=== PATIENT | female | born 1990 | race African-American/Black ===

== ENCOUNTER 2020-04-24 13:57 | Inpatient (IN) | payer OTHER ==
[2020-04-24] MEDS ORDERED: Nalbuphine 10 MG/1 ML Vial IVPUSH PRN (14:20)
[2020-04-24] MEDS ORDERED: Lidocaine 1% 50 ML MDV INJECT PRN (14:20)
[2020-04-24] MEDS ORDERED: Sodium Chloride 0.9% 10 ML Syringe FLUSH PRN (14:20)
[2020-04-24] MEDS ORDERED: Oxytocin/Lactated Ringers 10 UNIT/1,000 ML BAG IV SCH (14:30)
[2020-04-24] MEDS ORDERED: fentaNYL 100 MCG/2 ML SDV ONE (14:49)
[2020-04-24] MEDS: Lactated Ringers 1,000 ML IV SCH ×3 (15:15→16:56)
[2020-04-24] MEDS ORDERED: Bupivacaine/fentaNYL/NS 100 ML Bag EPIDUR PRN (15:23)
[2020-04-24] MEDS ORDERED: ePHEDrine 50 MG/ML SDV IVPUSH PRN (15:23)
[2020-04-24] MEDS ORDERED: fentaNYL 100 MCG/2 ML SDV EPIDUR PRN (15:23)
[2020-04-24] MEDS ORDERED: diphenhydrAMINE 50 MG/ML SDV IVPUSH PRN (15:23)
--- NOTE | 2020-04-24 15:23 | PCM.PREANE ---
Preanesthetic Assessment - Procedure Proposed Procedure: Continuous labor epidural - Anesthesia/Transfusion/Family Hx Anesthesia History: Prior Anesthesia Without Reaction - Review of Systems General: No Symptoms Pulmonary: No Symptoms Cardiovascular: No Symptoms Gastrointestinal: No Symptoms Neurological: No Symptoms Other: Reports: None - Physical Assessment Vital Signs: Last Vital Signs Temp Pulse 90 04/24/20 14:14 Resp BP Pulse Ox 97 04/24/20 14:14 Height: 1.52 m Weight: 115.212 kg ASA Class: 3 (morbid obesity) Mental Status: Alert & Oriented x3 Airway Class: Mallampati = 4 (difficult airway) Dentition: Reports: Normal Dentition Thyro-Mental Finger Breadths: 3 Mouth Opening Finger Breadths: 3 ROM/Head Extension: Full Lungs: Clear to Auscultation, Normal Respiratory Effort Cardiovascular: Regular Rate, Regular Rhythm - Lab Values: Laboratory Last Values WBC 11.67 K/mm3 (3.98-10.04) H 04/24/20 14:39 RBC 4.74 M/mm3 (3.98-5.22) 04/24/20 14:39 Hgb 12.8 gm/dl (11.2-15.7) 04/24/20 14:39 Hct 41.0 % (34.1-44.9) 04/24/20 14:39 MCV 86.5 fl (79.4-94.8) 04/24/20 14:39 MCH 27.0 pg (25.6-32.2) 04/24/20 14:39 MCHC 31.2 g/dl (32.2-35.5) L 04/24/20 14:39 RDW Std Deviation 47.3 fL (36.4-46.3) H 04/24/20 14:39 Plt Count 273 K/mm3 (182-369) 04/24/20 14:39 MPV 10.3 fl (9.4-12.3) 04/24/20 14:39 Neut % (Auto) 71.6 % (34.0-71.1) H 04/24/20 14:39 Lymph % (Auto) 18.9 % (19.3-51.7) L 04/24/20 14:39 [place] % (Auto) 7.0 % (4.7-12.5) 04/24/20 14:39 Eos % (Auto) 0.6 (0.7-5.8) L 04/24/20 14:39 Baso % (Auto) 0.1 % (0.1-1.2) 04/24/20 14:39 Neut # (Auto) 8.36 K/mm3 (1.56-6.13) H 04/24/20 14:39 Lymph # (Auto) 2.20 K/mm3 (1.18-3.74) 04/24/20 14:39 [place] # (Auto) 0.82 K/mm3 (0.24-0.36) H 04/24/20 14:39 Eos # (Auto) 0.07 K/mm3 (0.04-0.36) 04/24/20 14:39 Baso # (Auto) 0.01 K/mm3 (0.01-0.08) 04/24/20 14:39 - Allergies Allergies/Adverse Reactions: Allergies Allergy/AdvReac Type Severity Reaction Status Date / Time No Known Allergies Allergy Verified 04/06/20 13:09 - Acknowledgements Anesthesia Type Planned: Epidural Pt an Appropriate Candidate for the Planned Anesthesia: Yes Alternatives and Risks of Anesthesia Discussed w Pt/Guardian: Yes Pt/Guardian Understands and Agrees with Anesthesia Plan: Yes PreAnesthesia Questionnaire Endocrine/Metabolic History: Reports: Obesity/BMI 30+ (morbid) - CURRENT (IN HOUSE) MEDS Current Meds: Current Medications Lactated Ringer's (Ringers, Lactated) 1,000 mls @ 100 mls/hr IV ASDIRECTED ALBERTO Oxytocin/Lactated Ringer's (Pitocin In Lr 10 Units/1,000 Ml) 10 unit in 1,000 mls @ 500 mls/hr IV .CONTINUOUS ALBERTO Lidocaine HCl (Xylocaine 1%) 50 ml INJECT ONETIME PRN PRN Reason: Breakthrough Pain Nalbuphine HCl (Nubain) 10 mg IVPUSH Q2H PRN PRN Reason: Pain Sodium Chloride (Saline Flush) 10 ml FLUSH ASDIRECTED PRN PRN Reason: Keep Vein Open Discontinued Medications Fentanyl (Sublimaze) Confirm Administered Dose 100 mcg .ROUTE .STK-MED ONE Stop: 04/24/20 14:50
--- NOTE | 2020-04-24 17:31 | PCM.LDHP ---
L&D History of Present Illness - General Date of Service: 04/24/20 Admit Problem/Dx: Patient Status Order with Admit Dx/Problem 04/24/20 14:21 Patient Status [ADT] Routine Admission Diagnosis/Problem Admission Diagnosis/Problem - History of Present Illness Introduction:: 29 year old at 38w3 here in active labor. Pain Score: 8 - Related Data Allergies/Adverse Reactions: Allergies Allergy/AdvReac Type Severity Reaction Status Date / Time No Known Allergies Allergy Verified 04/06/20 13:09 Home Medications: Home Meds Ondansetron [Zofran ODT] 4 mg PO Q4HR PRN 04/24/20 [History] #103/Iron Fumarate/Fa [ ] 1 each PO DAILY 04/24/20 [History] Past Medical History - Past Health History Medical/Surgical History: Denies Medical/Surgical History Endocrine/Metabolic History: Reports: Obesity/BMI 30+ (morbid) - Past Surgical History HEENT Surgical History: Reports: Oral Surgery Other HEENT Surgeries/Procedures: wisdom teeth Endocrine Surgical History: Reports: None Social & Family History - Family History Family Medical History: Unobtainable - Tobacco Use Tobacco Use Status *Q: Never Tobacco User Second Hand Smoke Exposure: No - Caffeine Use Caffeine Use: Reports: None - Recreational Drug Use Recreational Drug Use: No H&P Review of Systems - Review of Systems: Review Of Systems: See Below General: Reports: No Symptoms HEENT: Reports: No Symptoms Pulmonary: Reports: No Symptoms Cardiovascular: Reports: No Symptoms Gastrointestinal: Reports: No Symptoms Genitourinary: Reports: No Symptoms Musculoskeletal: Reports: No Symptoms Skin: Reports: No Symptoms Psychiatric: Reports: No Symptoms Neurological: Reports: No Symptoms Hematologic/Lymphatic: Reports: No Symptoms Immunologic: Reports: No Symptoms L&D Exam - Exam Exam: See Below - Vital Signs Vital Signs: Last Vital Signs Temp Pulse 90 04/24/20 14:14 Resp BP Pulse Ox 97 04/24/20 14:14 Weight: 115.212 kg - OB Specific Contraction Intensity: Moderate to Strong Movement: Active Heart Tones: Present Heart Rate (FHR) Variability: Moderate (6-25 bmp) Presentation: Vertex - Pathak Score Pathak Score Cervix Position: Anterior Pathak Score Consistency: Medium Pathak Score Effacement: 51-70% Pathak Score Dilation: > 5 cm Pathak Score 's Station: -3 Pathak Score Total: 8 - Exam General: Alert, Oriented HEENT: PERRLA, Conjunctiva Clear, EACs Clear, EOMI, Hearing Intact, Mucosa Moist & [place], Nares Patent, Normal Nasal Septum, Posterior Pharynx Clear, TMs Clear Neck: Supple, Trachea Midline Lungs: Clear to Auscultation, Normal Respiratory Effort Cardiovascular: Regular Rate, Regular Rhythm GI/Abdominal Exam: Normal Bowel Sounds, Soft, Non-Tender, No Organomegaly, No Distention, No Abnormal Bruit, No Mass, Pelvis Stable Back Exam: Normal Inspection, Full Range of Motion Extremities: Normal Inspection, Normal Range of Motion, Non-Tender, No Pedal Edema, Normal Capillary Refill Skin: Warm, Dry, Intact Neurological: Cranial Nerves Intact, Reflexes Equal Bilateral Psychiatric: Alert, Normal Affect, Normal Mood - Patient Data Lab Results Last 24 hrs: Laboratory Results - last 24 hr 04/24/20 04/24/20 Range/Units 13:58 14:39 WBC 11.67 H (3.98-10.04) K/mm3 RBC 4.74 (3.98-5.22) M/mm3 Hgb 12.8 (11.2-15.7) gm/dl Hct 41.0 (34.1-44.9) % MCV 86.5 (79.4-94.8) fl MCH 27.0 (25.6-32.2) pg MCHC 31.2 L (32.2-35.5) g/dl RDW Std Deviation 47.3 H (36.4-46.3) fL Plt Count 273 (182-369) K/mm3 MPV 10.3 (9.4-12.3) fl Neut % (Auto) 71.6 H (34.0-71.1) % Lymph % (Auto) 18.9 L (19.3-51.7) % [place] % (Auto) 7.0 (4.7-12.5) % Eos % (Auto) 0.6 L (0.7-5.8) Baso % (Auto) 0.1 (0.1-1.2) % Neut # (Auto) 8.36 H (1.56-6.13) K/mm3 Lymph # (Auto) 2.20 (1.18-3.74) K/mm3 [place] # (Auto) 0.82 H (0.24-0.36) K/mm3 Eos # (Auto) 0.07 (0.04-0.36) K/mm3 Baso # (Auto) 0.01 (0.01-0.08) K/mm3 Manual Slide Review Normal smear SARS-CoV-2 RNA (SANG) Negative (NEGATIVE) Result Diagrams: 04/24/20 14:39 Problem List Initiated/Reviewed/Updated: Yes Orders Last 24hrs: Active Orders 24 hr Category Date Time Status Patient Status [ADT] Routine ADT 04/24/20 14:21 Active Activity as Tolerated [RC] PFP Care 04/24/20 14:21 Active Communication Order [RC] ASDIRECTED Care 04/24/20 14:21 Active Heart Tones [RC] ASDIRECTED Care 04/24/20 14:21 Active Notify Provider [RC] ASDIRECTED Care 04/24/20 15:23 Active Notify Provider [RC] PFP Care 04/24/20 14:21 Active Notify Provider [RC] PRN Care 04/24/20 14:21 Active Peripheral IV Care [RC] DAILY Care 04/24/20 14:21 Active Urinary Catheter Assessment [RC] ASDIRECTED Care 04/24/20 14:20 Active Vital Signs [RC] PER UNIT ROUTINE Care 04/24/20 14:08 Active Regular Diet [DIET] Diet 04/24/20 Dinner Active BLOOD BANK HOLD SPECIMEN [BBK] Stat Lab 04/24/20 14:20 Ordered RAPID PLASMA REAGIN,RPR [CHEM] Routine Lab 04/24/20 14:39 Received Bupivacaine/fentaNYL/NS [fentaNYL/Bupivacaine/NS 2 MCG- Med 04/24/20 15:23 Active 0.125% 100 ML] 100 ml EPIDUR ASDIRECTED PRN Lactated Ringers [Ringers, Lactated] 1,000 ml Med 04/24/20 14:30 Active IV ASDIRECTED Lidocaine 1% [Xylocaine 1%] Med 04/24/20 14:20 Active 50 ml INJECT ONETIME PRN Nalbuphine [Nubain] Med 04/24/20 14:20 Active 10 mg IVPUSH Q2H PRN Oxytocin/Lactated Ringers [Pitocin in LR 10 Units/1,000 Med 04/24/20 14:30 Active ML] 10 unit in 1,000 ml IV .CONTINUOUS Sodium Chloride 0.9% [Saline Flush] Med 04/24/20 14:20 Active 10 ml FLUSH ASDIRECTED PRN diphenhydrAMINE [Benadryl] Med 04/24/20 15:23 Active 25 mg IVPUSH Q6H PRN ePHEDrine [ePHEDrine sulfate] Med 04/24/20 15:23 Active 5 mg IVPUSH ASDIRECTED PRN fentaNYL [Sublimaze] Med 04/24/20 15:23 Active 100 mcg EPIDUR Q3H PRN Electronic Heart Tones Ext w TOCO [WOMSER] Oth 04/24/20 14:21 Ordered Routine Electronic Heart Tones Internal [WOMSER] Per Unit Oth 04/24/20 14:21 Ordered Routine Peripheral IV Insertion Adult [OM.PC] Routine Oth 04/24/20 14:21 Ordered Resuscitation Status Routine Resus Stat 04/24/20 14:08 Ordered Medication Orders Diphenhydramine HCl (Benadryl) 25 mg IVPUSH Q6H PRN PRN Reason: pruritis Ephedrine Sulfate (Ephedrine Sulfate) 5 mg IVPUSH ASDIRECTED PRN PRN Reason: Hypotension Fentanyl (Sublimaze) 100 mcg EPIDUR Q3H PRN PRN Reason: Pain Last Admin: 04/24/20 15:27 Dose: 100 mcg Documented by: GINA Fentanyl/Bupivacaine HCl (Fentanyl/Bupivacaine/Ns 2 Mcg-0.125% 100 Ml) 100 ml EPIDUR ASDIRECTED PRN PRN Reason: Pain Last Admin: 04/24/20 16:04 Dose: 100 ml Documented by: GINA Lactated Ringer's (Ringers, Lactated) 1,000 mls @ 100 mls/hr IV ASDIRECTED ALBERTO Last Admin: 04/24/20 16:56 Dose: 100 mls/hr Documented by: Infusion: 04/24/20 16:56 Dose: 100 mls/hr Documented by: Admin: 04/24/20 16:04 Dose: 100 mls/hr Documented by: Infusion: 04/24/20 16:04 Dose: 100 mls/hr Documented by: Admin: 04/24/20 15:15 Dose: 100 mls/hr Documented by: GINA Oxytocin/Lactated Ringer's (Pitocin In Lr 10 Units/1,000 Ml) 10 unit in 1,000 mls @ 500 mls/hr IV .CONTINUOUS ALBERTO Lidocaine HCl (Xylocaine 1%) 50 ml INJECT ONETIME PRN PRN Reason: Breakthrough Pain Nalbuphine HCl (Nubain) 10 mg IVPUSH Q2H PRN PRN Reason: Pain Sodium Chloride (Saline Flush) 10 ml FLUSH ASDIRECTED PRN PRN Reason: Keep Vein Open Assessment/Plan Comment:: Term labor. GBS negative. Anticipate Blood sugars q2 in labor
[2020-04-24] MEDS ORDERED: Lidocaine 1.5% with EPINEPHrine 1:200,000 5 ML Amp ONE (18:00)
--- NOTE | 2020-04-24 18:24 | PCM.SN.2 ---
- Free Text/Narrative Note: Stage I - Patient presented in active labor. 7 cm. Epidural for anesthesia. AROM clear fluid at 445. Stage II - of viable female, weight 3040g, 4/8 apgars at 1809. Head delivered in controlled manner over intact perineum. Body and shoulders followed without difficulty. Tight nuchal and body cord. To maternal abdomen. Cord clamped and cut and baby to warmer where casualty claims supervisor and circulating nurse awaiting. Stage III - of intact placenta. 3vc. No laceration. EBL 150
[2020-04-24] MEDS ORDERED: Benzocaine/Menthol 20%-0.5% Spray 56 GM Canister TOP PRN (19:42)
[2020-04-24] MEDS: Ibuprofen 600 MG Tab PO PRN (20:10)
[2020-04-24] MEDS ORDERED: Witch Hazel Medicated Pads 40/Jar TOP PRN (21:30)
[2020-04-25] MEDS: Acetaminophen 325 MG Tab PO PRN ×3 (00:26→15:09)
[2020-04-25] MEDS: Ibuprofen 600 MG Tab PO PRN ×3 (02:56→20:09)
[2020-04-25] MEDS: Docusate Sodium 100 MG Cap PO PRN ×2 (02:57→20:09)
--- NOTE | 2020-04-25 08:33 | PCM48HPAN ---
Post Anesthesia Note - EVALUATION WITHIN 48HRS OF ANESTHETIC Vital Signs in Normal Range: Yes Patient Participated in Evaluation: Yes Respiratory Function Stable: Yes Airway Patent: Yes Cardiovascular Function Stable: Yes Hydration Status Stable: Yes Pain Control Satisfactory: Yes Nausea and Vomiting Control Satisfactory: Yes Mental Status Recovered: Yes Vital Signs: Last Vital Signs Temp 98.1 F 04/25/20 03:03 Pulse 78 04/25/20 03:03 Resp 15 04/25/20 03:03 BP 136/94 H 04/25/20 03:03 Pulse Ox 96 04/25/20 03:03 - COMMENTS/OBSERVATIONS Free Text/Narrative:: Patient is on her day 1. Stated understanding about possible backaches following epidural anesthesia. Mentions having some minor back soreness at this time. Explanation given about importance of avoiding back straining. Denies any headache or lightheadedness at this time. Comfortable now. Ambulating, no difficulty urinating.
[2020-04-26] MEDS: Docusate Sodium 100 MG Cap PO PRN (07:15)
[2020-04-26] MEDS: Ibuprofen 600 MG Tab PO PRN (07:16)
--- NOTE | 2020-05-14 10:24 | PCM.DCSUM1 ---
Discharge Summary - Hospital Course Brief History: Doing well. Slightly elevated blood pressures continued. No symptoms. Will watch closely and followup for blood pressure check in one week or less. Diagnosis: Stroke: No - Discharge Data Discharge Date: 04/26/20 Discharge Disposition: Home, Self-Care 01 Condition: Good - Referral to Home Health Primary Care Physician: Shellie Monahan MD - Patient Summary/Data Hospital Course: Stage I - Patient presented in active labor. 7 cm. Epidural for anesthesia. AROM clear fluid at 445. Stage II - of viable female, weight 3040g, 4/8 apgars at 1809. Head delivered in controlled manner over intact perineum. Body and shoulders followed without difficulty. Tight nuchal and body cord. To maternal abdomen. Cord clamped and cut and baby to warmer where phlebotomy services representative and circulating nurse awaiting. Stage III - of intact placenta. 3vc. No laceration. EBL 150 Blood pressures elevated PPD1. Not severe range. Recheck with BP check and nurse visit within one week, appt that day if high. Warnings given. appointment at two week chrsity as well. - Patient Instructions Diet: Usual Diet as Tolerated Activity: No Strenuous Activities Driving: May Drive Today Showering/Bathing: May Shower Notify Provider of: Fever, Increased Pain, Swelling and Redness, Drainage, Nausea and/or Vomiting Other/Special Instructions: Call with any headaches, visual changes or abdominal pain - Discharge Plan *PRESCRIPTION DRUG MONITORING PROGRAM REVIEWED*: No *COPY OF PRESCRIPTION DRUG MONITORING REPORT IN PATIENT NEELAM: No Home Medications: Home Meds Ondansetron [Zofran ODT] 4 mg PO Q4HR PRN 04/24/20 [History] #103/Iron Fumarate/Fa [ ] 1 each PO DAILY 04/24/20 [History] Patient Handouts: Care After Vaginal Delivery Referrals: Shellie Monahan MD [Primary Care Provider] - (1 week (next week or thursday for BP check)) - Discharge Summary/Plan Comment DC Time >30 min.: No - General Info Date of Service: 04/26/20 Functional Status: Reports: Pain Controlled - Review of Systems General: Reports: No Symptoms HEENT: Reports: No Symptoms. Denies: Headaches, Visual Changes Pulmonary: Reports: No Symptoms Cardiovascular: Reports: No Symptoms Gastrointestinal: Reports: No Symptoms Genitourinary: Reports: No Symptoms Musculoskeletal: Reports: No Symptoms Skin: Reports: No Symptoms Neurological: Reports: No Symptoms Psychiatric: Reports: No Symptoms - Patient Data Vitals - Most Recent: Last Vital Signs Temp 36.4 C 04/26/20 07:46 Pulse 80 04/26/20 07:49 Resp 16 04/26/20 07:46 BP 137/90 04/26/20 07:49 Pulse Ox 98 04/26/20 07:49 Weight - Most Recent: 115.212 kg Med Orders - Current: Current Medications Discontinued Medications Acetaminophen (Tylenol) 650 mg PO Q4H PRN PRN Reason: Pain Last Admin: 04/25/20 15:09 Dose: 650 mg Documented by: Benzocaine/Menthol (Dermoplast Pain Relief [place]) 0 gm TOP ASDIRECTED PRN PRN Reason: Perineal Comfort Measure Last Admin: 04/24/20 20:10 Dose: 1 canister Documented by: Diphenhydramine HCl (Benadryl) 25 mg IVPUSH Q6H PRN PRN Reason: pruritis Docusate Sodium (Colace) 100 mg PO BID PRN PRN Reason: Constipation Last Admin: 04/26/20 07:15 Dose: 100 mg Documented by: Ephedrine Sulfate (Ephedrine Sulfate) 5 mg IVPUSH ASDIRECTED PRN PRN Reason: Hypotension Fentanyl (Sublimaze) Confirm Administered Dose 100 mcg .ROUTE .STK-MED ONE Stop: 04/24/20 14:50 Last Admin: 04/24/20 16:07 Dose: Not Given Documented by: Fentanyl (Sublimaze) 100 mcg EPIDUR Q3H PRN PRN Reason: Pain Last Admin: 04/24/20 15:27 Dose: 100 mcg Documented by: Fentanyl/Bupivacaine HCl (Fentanyl/Bupivacaine/Ns 2 Mcg-0.125% 100 Ml) 100 ml EPIDUR ASDIRECTED PRN PRN Reason: Pain Last Admin: 04/24/20 16:04 Dose: 100 ml Documented by: Lactated Ringer's (Ringers, Lactated) 1,000 mls @ 100 mls/hr IV ASDIRECTED ALBERTO Last Admin: 04/24/20 16:56 Dose: 100 mls/hr Documented by: Oxytocin/Lactated Ringer's (Pitocin In Lr 10 Units/1,000 Ml) 10 unit in 1,000 mls @ 500 mls/hr IV .CONTINUOUS ALBERTO Last Admin: 04/24/20 18:09 Dose: 500 mls/hr Documented by: Ibuprofen (Motrin) 600 mg PO Q6H PRN PRN Reason: Mild pain or fever Last Admin: 04/26/20 07:16 Dose: 600 mg Documented by: Lidocaine HCl (Xylocaine 1%) 50 ml INJECT ONETIME PRN PRN Reason: Breakthrough Pain Lidocaine/Epinephrine (Xylocaine-Mpf 1.5% W/Epinephrine 1:200,000) 10 ml .ROUTE .STK-MED ONE Stop: 04/24/20 18:01 Nalbuphine HCl (Nubain) 10 mg IVPUSH Q2H PRN PRN Reason: Pain Sodium Chloride (Saline Flush) 10 ml FLUSH ASDIRECTED PRN PRN Reason: Keep Vein Open Witch [place]attie (Tucks) 1 pad TOP ASDIRECTED PRN PRN Reason: Perineal Comfort Measure - Exam General: Reports: Alert, Oriented HEENT: Reports: Pupils Equal, Pupils Reactive, EOMI, Mucous Membr. Moist/[place] Neck: Reports: Supple Lungs: Reports: Clear to Auscultation, Normal Respiratory Effort Cardiovascular: Reports: Regular Rate, Regular Rhythm GI/Abdominal Exam: Normal Bowel Sounds, Soft, Non-Tender, No Organomegaly, No Distention, No Abnormal Bruit, No Mass, Pelvis Stable (Female) Exam: Normal External Exam, Normal Speculum Exam, Normal Bimanual Exam Back Exam: Reports: Normal Inspection, Full Range of Motion Extremities: Normal Inspection, Normal Range of Motion, Non-Tender, No Pedal Edema, Normal Capillary Refill Skin: Reports: Warm, Dry, Intact Neurological: Reports: No New Focal Deficit Psy/Mental Status: Reports: Alert, Normal Affect, Normal Mood
== END 2020-04-26 09:15 | disposition home or self-care (01) | DRG 807 ==
LOC: JD.OBCHECK 13:57 → JD.OB 13:57 → JD.OBCHECK 14:21 → JD.OB 14:21 → OBSVTOIN 18:09 → JD.OB 18:10
PROVIDERS: ADMIT Obstetrics & Gynecology; ATTEND Obstetrics & Gynecology
PROC: 10E0XZZ Delivery of Products of Conception, External Approach (ICD-10-PCS; principal; 2020-04-24)
PROC: 10907ZC Drainage of Amniotic Fluid, Therapeutic from Products of Conception, Via Natural or Artificial Opening (ICD-10-PCS; 2020-04-24)
PROC: 3E0R3BZ Introduction of Anesthetic Agent into Spinal Canal, Percutaneous Approach (ICD-10-PCS; 2020-04-24)
DX: O69.1XX0 Labor and delivery complicated by cord around neck, with compression, not applicable or unspecified (principal); Z37.0 Single live birth; Z3A.38 38 weeks gestation of pregnancy; O99.214 Obesity complicating childbirth; E66.9 Obesity, unspecified; Z20.822 Contact with and (suspected) exposure to COVID-19
CPT/HCPCS: 01967; 36415; 51701; 59025; 59409; 82565; 83615; 84450; 84460; 84520; 84550; 85025; 86592; A9270-GY; J2590; J3010; J7120; U0002